=== PATIENT | male | born 2000 | race American Indian/Alaskan Native ===

== ENCOUNTER 2021-04-10 12:13 | Emergency (ER) | payer SELFPAY ==
[2021-04-10 12:24] VITALS: BP 153/76
--- NOTE | 2021-04-10 12:45 | Emergency Department Report ---
Chief Complaint: Medical Clearance Stated Complaint: CHECK UP Time Seen by Provider: 04/10/21 12:29 - HPI History of Present Illness: 20-year-old -[place] male presents to the emergency room needing a checkup on his genital warts. Patient states that the medication that was prescribed to him by Dr. Dmitri Kelly is no longer working. Patient comes in thinking that this is [facility]. Patient comes in with a bottle of medication with Dr. Dmitri Kelly name on it. Patient states that he was told that Dr. Kelly was working today in the [place] location. Patient was unfamiliar of that location and came to the ER thinking this was [facility]. When asked if patient has any rashes or's concerns he did states that no he just needed to follow-up with his primary care provider. - Exam Vital Signs: Vital Signs 04/10/21 12:20 Temperature 98.8 F Pulse Rate 79 Respiratory 18 Rate Blood Pressure 153/76 [Right] O2 Sat by Pulse 100 Oximetry Physical Exam: General: Awake, appropriately interactive, no acute distress. Neck: Supple. Full range of motion intact. Cardiovascular: Normal peripheral perfusion. Pulmonary: No respiratory distress. Patient is speaking normally without use of accessory muscles. Skin: No apparent rashes or lesions. Neurological: No facial asymmetry. Speech is clear. Follows commands. Patient is alert and oriented. Musculoskeletal: Full range of motion, no crepitus. Able to bear weight and ambulate without difficulty. Distal neurovascular and motor/sensory function is intact. Psych: Cooperative. Appropriate mood and affect. MSE screening note: Focused history and physical exam performed. Due to findings the following was ordered: ED Medical Decision Making - Medical Decision Making 20-year-old -[place] male presents to the emergency room needing a checkup on his genital warts. Patient states that the medication that was prescribed to him by Dr. Dmitri Kelly is no longer working. Patient comes in thinking that this is [facility]. Patient comes in with a bottle of medication with Dr. Dmitri Kelly name on it. Patient states that he was told that Dr. Kelly was working today in the [place] location. Patient was unfamiliar of that location and came to the ER thinking this was [facility]. When asked if patient has any rashes or's concerns he did states that no he just needed to follow-up with his primary care provider. Patient decided to leave follow-up at [facility]. ED Disposition for MSE Disposition: 07 LEFT AWOL/ELOPED Is pt being admited?: No Does the pt Need Aspirin: No Condition: Stable
== END 2021-04-10 12:47 | disposition left against medical advice (07) ==
LOC: ED 12:13
DX: A63.0 Anogenital (venereal) warts (principal)
CPT/HCPCS: 99281